=== PATIENT | male | born 1965 | race Caucasian/White ===

== ENCOUNTER 2018-03-28 09:53 | Emergency (ER) | payer OTHER ==
[~2018-03-28] VITALS: Ht 185.4 cm; Wt 109.0 kg
[2018-03-28] MEDS ORDERED: PERCOCET 5/31 TABLET PO ×2 (11:06→11:12)
[2018-03-28 11:22] VITALS: BP 152/83
== END 2018-03-28 11:24 | disposition home or self-care (01) ==
LOC: EME 09:53
DX: S93.402A Sprain of unspecified ligament of left ankle, initial encounter (principal); X50.1XXA Overexertion from prolonged static or awkward postures, initial encounter; Y93.41 Activity, dancing; I10 Essential (primary) hypertension
CPT/HCPCS: 73610; 99281; 99283